=== PATIENT | male | born 2005 | race Caucasian/White ===

== ENCOUNTER 2024-02-04 16:38 | Emergency (ER) | payer MEDICAID ==
[~2024-02-04] VITALS: Ht 180.3 cm; Wt 72.7 kg
[2024-02-04] MEDS: DexAMETHasone SOD PHOS 10MG/1ML VIAL INJ IM ONE (17:10)
[2024-02-04 17:13] VITALS: BP 111/79; TEMP 98.2
[2024-02-04 17:14] VITALS: PULSE 81; RESP 18; O2SAT 100
--- NOTE | 2024-02-04 17:55 | ED.PDOC ---
HPI Allergic reaction HPI Comments This patient is a pleasant 18-year-old male who arrives to the ED today via EMS status post bee sting approximately 1 hour prior to arrival. 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 Patient states that subsequent to the bee sting, he has not experienced any airway compromise or lip or throat swelling. Pain and inflammation seems to be localized. Patient denies any fever nausea or vomiting. Vital signs were stable at arrival. Chief Complaint: Allergic Reaction Time Seen by MD: 16:40 Primary Care Provider: NONE Reviewed Notes: Nurses Notes, Service Officer Notes Allergies: Coded Allergies: Bee Venom (Verified Allergy, Unknown, 02/04/24) Information Source: Patient, Emergency Med Personnel Mode of Arrival: EMS Severity: Mild Rash: Mild SOB: None Difficulty swallowing: None Pruritus: None Timing: Minutes Duration: Since onset Prehospital treatment: None Location: Arm Exposed to: Other (Bee) History of: None (Anaphylactic response to bee sting) Modyifying Factors: None Associated Sign and Symptoms: None Past Medical History PAST MEDICAL HISTORY: Anxiety, Depression Past Medical History (Other): 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 Surgical History: Denies all surgeries Family History Family History: Reviewed,noncontributory to illness, No family hx of Cancer, No family hx of DM, No family hx of Heart katie, No family hx of HTN, No family hx ofKidney katie, No family hx of Liver katie, No family hx of Lung katie, No family hx of Stroke Social History Smoker: Non-Smoker Alcohol: Denies ETOH Use Drugs: Denies Drug Use Lives In: Home Constitutional: denies: chills, diaphoresis, fatigue, fever, malaise, sweats, weakness, others EENTM: denies: blurred vision, double vision, ear bleeding, ear discharge, ear drainage, ear pain, ear ringing, eye pain, eye redness, hearing loss, mouth pain, mouth swelling, nasal discharge, nose bleeding, nose congestion, nose pain, photophobia, tearing, throat pain, throat swelling, voice changes, others Respiratory: denies: cough, hemoptysis, orthopnea, SOB at rest, shortness of breath, SOB with excertion, stridor, wheezing, others Cardiovascular: denies: chest pain, dizzy spells, diaphoresis, Dyspnea on exertion, edema, irregular heart beat, left arm pain, lightheadedness, palpitations, PND, syncope, others Gastrointestinal: denies: abdomen distended, abdominal pain, blood streaked bowels, constipated, diarrhea, dysphagia, difficulty swallowing, hematemesis, melena, nausea, poor appetite, poor fluid intake, rectal bleeding, rectal pain, vomiting, others Genitourinary: denies: burning, dysuria, flank pain, frequency, hematuria, incontinence, penile discharge, penile sore, pain, testicle pain, testicle swelling, urgency, others Neurological: denies: dizziness, fainting, headache, left sided numbness, left sided weakness, numbness, paresthesia, pre-existing deficit, right sided numbness, right sided weakness, seizure, speech problems, tingling, tremors, weakness, others Musculoskeletal: denies: back pain, gout, joint pain, joint swelling, muscle pain, muscle stiffness, neck pain, others Integumetry: reports: others (Bee sting to right biceps); denies: bruises, change in color, change in hair/nails, dryness, laceration, lesions, lumps, rash, wounds Allergic/Immunocompromised: denies: Difficulty Healing, Frequent Infections, Hives, Itching, others Hematologic/Lymphatic: denies: anemia, blood clots, easy bleeding, easy bruising, swollen glands, others Endocrine: denies: excessive hunger, excessive sweating, excessive thirst, excessive urination, flushing, intolerance to cold, intolerance to heat, unexplained weight gain, unexplained weight loss, others Psychiatric: denies: anxiety, bipolar disorder, depression, hopeless, panic disorder, schizophrenia, sleepless, suicidal, others Physical Exam General Appearance: Mild Distress (Patient was in moderate distress due to anxiety rather than pain concerns.), Normal HEENT: Normal ENT Inspection, Pharynx Normal, TMs Normal, Other (Unremarkable oropharyngeal and facial evaluation. Patient does not displaying any signs of anaphylaxis.) Neck: Full Range of Motion, Non-Tender, Normal, Normal Inspection Respiratory: Chest Non-Tender, Lungs Clear, No Accessory Muscle Use, No Respira tory Distress, Normal Breath Sounds Cardiovascular: No Edema, No JVD, No Murmur, No Gallop, Normal Peripheral Pulses, Regular Rate/Rhythm Breast Exam: Deferred Gastrointestinal: No Organomegaly, Non Tender, No Pulsatile Mass, Normal Bowel Sounds, Soft Genitalia: Deferred Pelvic: Deferred Rectal: Deferred Extremities: No calf tenderness, Normal capillary refill, Normal inspection, Normal range of motion, Non-tender, No pedal edema Neurologic: Alert, vulnerability assessment analyst II-XII nml as Tested, No Motor Deficits, Normal Affect, Normal Mood, No Sensory Deficits Cerebellar Function: Normal Reflexes: Normal Skin: Dry, Normal Color, Warm, Wounds (Mildly erythematous localized to response to a bee sting on the anterior right bicep. No lymphangitis noted. Expected edema. Patient does not display any signs of anaphylactic response.) Lymphatic: No Adenopathy Was a procedure done? Was a procedure done?: No Differential diagnosis (all) Differential Diagnosis: Anaphylaxis, Angioedema, Contact Dermatitis, Urticaria X-Ray, Labs, Meds, VS Vital Signs Date Time Temp Pulse Resp B/P (MAP) Pulse Ox O2 Delivery O2 Flow Rate FiO2 02/04/24 17:14 81 18 100 Room Air* 0 21 02/04/24 17:13 98.2 82 18 111/79 (90) 100 98.2 02/04/24 16:42 98.1 80 16 120/80 (93) 100 Current Medications Medications (Trade) Dose Ordered Sig/Sushma Route Start Time Stop Time Status Last Admin Dexamethasone Sodium Phosphate (Decadron Injection) 10 mg ONCE ONCE IM 02/04/24 16:45 02/04/24 16:46 DC 02/04/24 17:10 X-Ray, Labs, Meds, VS Comment Patient had a very mild response to the bee sting. Patient received some De cadron and was observed in the ED for an hour. Patient did not display any signs of respiratory distress and therefore, will be discharged. Time of 1ST Reevaluation: 17:53 Reevaluation 1ST: Improved Consultation: PCP Patient Education/Counseling: Diagnosis, Treatment Family Education/Counseling: Diagnosis, Treatment Departure 1 Departure Time of Disposition: 17:53 Impression: Primary Impression: Bee sting Disposition: 01 HOME / SELF CARE / HOMELESS Condition: Stable Additional Instructions: Advised patient utilize ice to aid in reduction of if inflammatory response. Patient can utilize Tylenol and or Motrin as needed for pain relief. Discharged With: Self, Friend Critical Care Note Critical Care Time?: No Stability Stability form required: No Heart Score Heart Score: Heart Score Response (Comments) Value History N/A 0 EKG N/A 0 Age N/A 0 Risk Factors N/A 0 Troponin N/A 0 Total 0 ABIMBOLA SUBRAMANIAN PAC Feb 04, 2024 17:55
== END 2024-02-04 19:00 | disposition home or self-care (01) ==
LOC: EDBD 16:38 → ER 16:38
DX: T78.40XA Allergy, unspecified, initial encounter (principal); Z91.030 Bee allergy status
CPT/HCPCS: 96372; 99283; J1100

== ENCOUNTER 2024-09-15 22:10 | Emergency (ER) | payer MEDICAID ==
[~2024-09-15] VITALS: Ht 188 cm; Wt 87.3 kg
[2024-09-15 23:00] VITALS: BP 123/73; PULSE 99; RESP 18; TEMP 98.7; O2SAT 98
[2024-09-15] MEDS ORDERED: OLAN20TA PO (23:48)
--- NOTE | 2024-09-15 23:49 | ED.PDOC ---
Psychiatric HPI Comments Pt presents to the ER due to medication refill. Pt reports he has been out of his Olanzapine x2 days which has caused him to not be able to sleep. Pt states he takes Olanzapine 20mg at night. Pt denies any other symptoms. Chief Complaint: Anxiety Time Seen by MD: 22:16 Primary Care Provider: n/a Reviewed Notes: Nurses Notes, Medications, Allergies Information Source: Patient Mode of Arrival: Ambulatory Past Medical History PAST MEDICAL HISTORY: Anxiety, Depression Surgical History: Denies all surgeries Family History Family History: Reviewed,noncontributory to illness, No family hx of Cancer, No family hx of DM, No family hx of Heart katie, No family hx of HTN, No family hx ofKidney katie, No family hx of Liver katie, No family hx of Lung katie, No family hx of Stroke Social History Smoker: Non-Smoker Alcohol: Denies ETOH Use Drugs: Denies Drug Use Lives In: Home Constitutional: denies: chills, diaphoresis, fatigue, fever, malaise, sweats, weakness, others EENTM: denies: blurred vision, double vision, ear bleeding, ear discharge, ear drainage, ear pain, ear ringing, eye pain, eye redness, hearing loss, mouth pain, mouth swelling, nasal discharge, nose bleeding, nose congestion, nose pain, photophobia, tearing, throat pain, throat swelling, voice changes, others Respiratory: denies: cough, hemoptysis, orthopnea, SOB at rest, shortness of breath, SOB with excertion, stridor, wheezing, others Cardiovascular: denies: chest pain, dizzy spells, diaphoresis, Dyspnea on exertion, edema, irregular heart beat, left arm pain, lightheadedness, palpitations, PND, syncope, others Gastrointestinal: denies: abdomen distended, abdominal pain, blood streaked bowels, constipated, diarrhea, dysphagia, difficulty swallowing, hematemesis, melena, nausea, poor appetite, poor fluid intake, rectal bleeding, rectal pain, vomiting, others Genitourinary: denies: burning, dysuria, flank pain, frequency, hematuria, i ncontinence, penile discharge, penile sore, pain, testicle pain, testicle swelling, urgency, others Neurological: denies: dizziness, fainting, headache, left sided numbness, left sided weakness, numbness, paresthesia, pre-existing deficit, right sided numbness, right sided weakness, seizure, speech problems, tingling, tremors, weakness, others Musculoskeletal: denies: back pain, gout, joint pain, joint swelling, muscle pain, muscle stiffness, neck pain, others Integumetry: denies: bruises, change in color, change in hair/nails, dryness, laceration, lesions, lumps, rash, wounds, others Allergic/Immunocompromised: denies: Difficulty Healing, Frequent Infections, Hives, Itching, others Hematologic/Lymphatic: denies: anemia, blood clots, easy bleeding, easy bruising, swollen glands, others Endocrine: denies: excessive hunger, excessive sweating, excessive thirst, excessive urination, flushing, intolerance to cold, intolerance to heat, unexplained weight gain, unexplained weight loss, others Psychiatric: reports: anxiety, sleepless; denies: bipolar disorder, depression, hopeless, panic disorder, schizophrenia, suicidal, others Physical Exam General Appearance: No Apparent Distress, Normal HEENT: Pharynx Normal Neck: Full Range of Motion, Non-Tender Respiratory: Chest Non-Tender, Lungs Clear, No Accessory Muscle Use, No Respiratory Distress, Normal Breath Sounds Cardiovascular: No Edema, No JVD, No Murmur, No Gallop, Normal Peripheral Pulses, Regular Rate/Rhythm Breast Exam: Deferred Gastrointestinal: No Organomegaly, Non Tender, No Pulsatile Mass, Normal Bowel Sounds, Soft Genitalia: Deferred Pelvic: Deferred Rectal: Deferred Extremities: Normal capillary refill, Normal inspection, Normal range of tang on, Non-tender, No pedal edema Musculoskeletal : Apperance: Normal Neurologic: Alert, No Motor Deficits, Normal Affect, Normal Mood, No Sensory Deficits Cerebellar Function: Normal Reflexes: Normal Skin: Dry, Normal Color, Warm Lymphatic: No Adenopathy Was a procedure done? Was a procedure done?: No Psych Differential Dx OD Differential Dx: Delirium, Depression, Hallucinations, Panic Disorder, Personality Disorder, Suicidal Attempt X-Ray, Labs, Meds, VS Vital Signs Date Time Temp Pulse Resp B/P (MAP) Pulse Ox O2 Delivery O2 Flow Rate FiO2 09/15/24 23:00 98.7 99 18 123/73 (90) 98 98.7 X-Ray, Labs, Meds, VS Comment PATIENT'S MEDICATION FILLED FOR 14 DAYS UNTIL HE FOLLOWS UP WITH HIS PCP. MEDICATIONS REFILLED AND PRESCRIBED BASED ON PATIENT'S PROVIDED BOTTLE OF FOR REFILLS OF HIS MEDICATION. TAKE MEDICATIONS PRESCRIBED SIDE EFFECTS DI SCUSSED. ADVISED TO FOLLOW UP WITH HIS PCP ADVISED ON ER RETURN PRECAUTIONS MOTHER INDICATES UNDERSTANDING AND PATIENT AGREE WITH DISCHARGE PLAN OF CARE. Time of 1ST Reevaluation: 22:16 Reevaluation 1ST: Unchanged Time of 2ND Reevaluation: 23:48 Reevaluation 2ND: Improved Patient Education/Counseling: Diagnosis, Treatment, Prognosis, Need For Follow Up Family Education/Counseling: No Family Present Departure 1 Departure Time of Disposition: 23:48 Impression: Primary Impression: Medication refill Additional Impression: Anxiety with depression Disposition: 01 HOME / SELF CARE / HOMELESS Condition: Stable e-Prescriptions Olanzapine (Zyprexa) 20 Mg Tab 20 MG PO QPM for 14 Days, #14 TAB Prov: RAMÓN HUITRON 09/15/24 Discharged With: Self Critical Care Note Critical Care Time?: No Stability Stability form required: RAMÓN Jerome Sep 15, 2024 23:49
== END 2024-09-16 00:02 | disposition home or self-care (01) ==
LOC: ER 22:10
DX: F41.9 Anxiety disorder, unspecified (principal); F32.A Depression, unspecified; Z76.0 Encounter for issue of repeat prescription